=== PATIENT | male | born 1965 | race Caucasian/White ===

== ENCOUNTER 2025-04-03 11:48 | Outpatient (CLI) | payer OTHER, SELFPAY ==
[2025-04-03 12:19] LABS: Hematocrit 47.8 % (42.0-52.0); Hemoglobin 16.3 g/dL (14.0-18.0); Mean Corpuscular HGB Conc 34.1 g/dl (32-36); Mean Corpuscular Hemoglobin 32.7 pg (26-34); Mean Corpuscular Volume 95.8 fl (80-100); Platelet Count Result 179 k/mm3 (150-375); Red Blood Count 4.99 M/mm3 (4.6-6.20); White Blood Count 8.6 K/mm3 (4.5-10.0)
[2025-04-03 12:47] LABS: Alanine Aminotransferase 26 U/L (6-50); Albumin Level 4.1 g/dL (3.5-5.1); Alkaline Phosphatase 90 U/L (38-126); Anion Gap 10 mmol/L (4-12); Aspartate Amino Transferase 27 U/L (17-59); Bilirubin,Total 0.5 mg/dL (0.2-1.3); Blood Urea Nitrogen 18 mg/dL (9-20); Calcium 9.0 mg/dL (8.4-10.2); Carbon Dioxide 27 mmol/L (22-30); Chloride 103 mmol/L (98-107); Cholesterol 167 mg/dL (0-200); Estimated Glomerular Filt Rate > 60; Glucose 84 mg/dL (65-110); HDL Direct 42 mg/dL; Potassium 3.7 mmol/L (3.4-5.0); Sodium 140 mmol/L (137-145); Total Protein 7.0 g/dL (6.3-8.2); Triglycerides 189 mg/dL (<150)
[2025-04-03 13:23] LABS: Prostate Specific Antigen 0.6 ng/mL (< OR = 4.0); Thyroid Stimulating Hormone 0.660 uIU/mL (0.465-4.680)
[2025-04-03 14:00] LABS: Hemoglobin A1C 6.1 % (<5.7)
== END 2025-04-03 11:49 | disposition home or self-care (01) ==
LOC: ANHLAB 11:53
PROVIDERS: PCP Nurse Practitioner; Visit Provider Nurse Practitioner
DX: E78.5 Hyperlipidemia, unspecified (principal); I10 Essential (primary) hypertension; E03.9 Hypothyroidism, unspecified; R73.01 Impaired fasting glucose; Z12.5 Encounter for screening for malignant neoplasm of prostate; E55.9 Vitamin D deficiency, unspecified
CPT/HCPCS: 36415; 80053; 80061; 82306; 83036; 84153; 84443; 85027; G0103

== ENCOUNTER 2025-05-01 09:09 | Outpatient (CLI) | payer OTHER, SELFPAY ==
--- NOTE | ~2025-05-01 | CT_ITS ---
EXAMINATION:CT lung screening DATE: 05/01/2025 09:23 INDICATION: Screening TECHNIQUE: Computed tomography (CT) of the chest was performed without intravenous contrast. The dose-length product (DLP) was 423.32 mGy-cm. COMPARISON: None. FINDINGS: Scattered calcified granulomas nodules with no suspicious soft tissue nodules or masses seen. Heart and great vessels normal size with no bulky mediastinal or hilar lymphadenopathy masses. Moderate coronary artery calcifications present. Diffuse degenerative changes throughout the bones. 2.2 cm right adrenal adenoma. 2 cm left adrenal adenoma. No acute process seen in the visualized portions of the upper abdomen or extrathoracic soft tissues. Mild bilateral gynecomastia. IMPRESSION: 1. No suspicious lung nodules. Small granulomas seen. Lung RADS 2. Correlate with follow-up low-dose lung cancer screening chest CT in 12 months. 2. Incidental findings including bilateral adrenal adenomas, and coronary artery calcifications. Reviewed, dictated and finalized at location A. [employer]ED [employer]ATOR IMPRESSION: 1. No suspicious lung nodules. Small granulomas seen. Lung RADS 2. Correlate wi th follow-up low-dose lung cancer screening chest CT in 12 months. 2. Incidental findings including bilateral adrenal adenomas, and coronary arter y calcifications.
== END 2025-05-01 09:10 | disposition home or self-care (01) ==
PROVIDERS: PCP Nurse Practitioner; Visit Provider Nurse Practitioner
DX: Z12.2 Encounter for screening for malignant neoplasm of respiratory organs (principal); Z87.891 Personal history of nicotine dependence; D35.01 Benign neoplasm of right adrenal gland; D35.02 Benign neoplasm of left adrenal gland
CPT/HCPCS: 71271